=== PATIENT | male | born 2000 | race Caucasian/White ===

== ENCOUNTER 2021-12-03 00:23 | Emergency (ER) | payer OTHER ==
[2021-12-03 00:51] VITALS: BP 135/84; PULSE 78; RESP 19; TEMP 98.3; BMI 29.9
[2021-12-03] MEDS ORDERED: KETOROLAC TROMETHAMINE 30 MG/1 ML VIAL IM ONE (01:47)
[2021-12-03] MEDS ORDERED: KETOROLAC TROMETHAMINE 30 MG/1 ML VIAL ONE (02:06)
== END 2021-12-03 03:07 | disposition home or self-care (01) ==
LOC: JER 00:23
PROC: 3E023GC Introduction of Other Therapeutic Substance into Muscle, Percutaneous Approach (ICD-10-PCS; principal; 2021-12-03)
DX: R07.89 Other chest pain (principal)
CPT/HCPCS: 71046-TC-FY; 93005; 93010; 99284-25

== ENCOUNTER 2021-12-05 09:29 | Emergency (ER) | payer OTHER ==
[2021-12-05 09:38] VITALS: BP 149/90; PULSE 84; RESP 17; TEMP 98.1; BMI 30.7
[2021-12-05] MEDS ORDERED: FAMOTIDINE 20 MG/50 ML IVPB 20 MG/50 ML MG IVPB ONE ×2 (10:41→10:48)
[2021-12-05] MEDS ORDERED: LIDOCAINE VISCOUS 2% ORAL/TOP 15 ML UNIT-DOSE CUP MM ONE (10:41)
[2021-12-05] MEDS ORDERED: LIDOCAINE VISCOUS 2% ORAL/TOP 15 ML UNIT-DOSE CUP ONE (10:48)
[2021-12-05 11:28] LABS: EOS % 0.6 % (0-4.5); HEMOGLOBIN 17.3 GM/dL (11.7-16.9); LYMPH % 14.1 % (8-40); MCH 32.6 pg (25.7-33.7); MONO % 8.6 % (3.8-10.2); NEUT % 75.7 % (42.8-82.8); PLATELET COUNT 244 10^3/uL (134-434); RBC 5.31 M/mm3 (4.00-5.60); RDW 13.3 % (11.9-15.9); WHITE BLOOD COUNT 6.5 K/mm3 (4.0-10.0)
[2021-12-05 11:33] LABS: ALBUMIN 4.6 g/dl (3.4-5.0); BLOOD UREA NITROGEN 12.9 mg/dL (7-18)
[2021-12-05 11:36] LABS: CREATININE 1.3 mg/dL (0.55-1.3)
[2021-12-05 11:37] LABS: BILIRUBIN,TOTAL 1.2 mg/dL (0.2-1)
[2021-12-05 11:38] LABS: TOT PROT 8.9 g/dl (6.4-8.2)
== END 2021-12-05 14:12 | disposition home or self-care (01) ==
LOC: JER 09:29
PROC: 3E033NZ Introduction of Analgesics, Hypnotics, Sedatives into Peripheral Vein, Percutaneous Approach (ICD-10-PCS; principal; 2021-12-05)
DX: R07.9 Chest pain, unspecified (principal)
CPT/HCPCS: 36415; 71046-TC-FY; 80053; 84484; 85025; 93005; 93010; 99284-25

== ENCOUNTER 2022-12-20 21:39 | Emergency (ER) | payer OTHER ==
[2022-12-20 21:54] VITALS: BP 128/85; PULSE 92; RESP 18; TEMP 98.5; BMI 29.8
[2022-12-20] MEDS ORDERED: KETOROLAC TROMETHAMINE 30 MG/1 ML VIAL IM ONE (22:45)
[2022-12-20] MEDS ORDERED: KETOROLAC TROMETHAMINE 30 MG/1 ML VIAL ONE (22:46)
[2022-12-20 23:24] LABS: BASO % 0.8 % (0-2.0); EOS % 1.4 % (0-4.5); HEMOGLOBIN 16.7 GM/dL (11.7-16.9); MCH 32.1 pg (25.7-33.7); MCHC 34.1 g/dl (32.0-35.9); MEAN CELL VOLUME 94.1 fl (80-96); MEAN PLT VOLUME 8.9 fl (7.5-11.1); MONO % 11.2 % (3.8-10.2); NEUT % 52.6 % (42.8-82.8); PLATELET COUNT 227 10^3/uL (134-434); RDW 13.4 % (11.9-15.9); WHITE BLOOD COUNT 8.1 K/mm3 (4.0-10.0)
[2022-12-20 23:42] LABS: POTASSIUM 4.1 mmol/L (3.5-5.1)
[2022-12-20 23:44] LABS: ALBUMIN 4.5 g/dl (3.4-5.0); BLOOD UREA NITROGEN 16.3 mg/dL (7-18); CALCIUM 9.4 mg/dL (8.5-10.1)
[2022-12-20 23:47] LABS: CREATININE 1.3 mg/dL (0.55-1.3)
[2022-12-20 23:49] LABS: TOT PROT 8.3 g/dl (6.4-8.2)
[2022-12-21 00:32] LABS: BILIRUBIN,TOTAL 0.5 mg/dL (0.2-1)
== END 2022-12-21 00:14 | disposition home or self-care (01) ==
LOC: JER 21:39
PROC: 3E0233Z Introduction of Anti-inflammatory into Muscle, Percutaneous Approach (ICD-10-PCS; principal; 2022-12-20)
DX: R06.02 Shortness of breath (principal); R07.89 Other chest pain
CPT/HCPCS: 36415; 71046-TC-FY; 80053; 84484; 85025; 85379; 93005; 93010; 99285-25

== ENCOUNTER 2023-07-01 23:12 | Emergency (ER) | payer OTHER ==
[2023-07-01 23:22] VITALS: BP 113/71; PULSE 61; RESP 18; TEMP 97.9; BMI 29.0
[2023-07-01] MEDS ORDERED: KETOROLAC TROMETHAMINE 30 MG/1 ML VIAL ONE (23:53)
[2023-07-02] MEDS: KETOROLAC TROMETHAMINE 30 MG/1 ML VIAL IM ONE (00:49)
== END 2023-07-02 01:40 | disposition home or self-care (01) ==
LOC: JER 23:12
PROC: 3E0233Z Introduction of Anti-inflammatory into Muscle, Percutaneous Approach (ICD-10-PCS; principal; 2023-07-01)
DX: R10.12 Left upper quadrant pain (principal)
CPT/HCPCS: 71046-TC-FY; 93005; 93010; 99284-25